=== PATIENT | female | born 1945 | race Caucasian/White ===

== ENCOUNTER → 2023-07-28 12:42 | Outpatient (REF) | payer MEDICARE, OTHER, SELFPAY | LOC: WDC 12:42 | PROVIDERS: ATTENDING PHYSICIAN Obstetrics & Gynecology Gynecology; FAMILY PHYSICIAN Family Medicine | DX: Z12.31 Encounter for screening mammogram for malignant neoplasm of breast (principal) | CPT/HCPCS: 77063; 77067 ==

== ENCOUNTER 2023-09-21 11:38 | Emergency (ER) | payer MEDICARE, OTHER, SELFPAY ==
[2023-09-21 11:50] VITALS: BP 181/90
[2023-09-21 12:05] VITALS: BP 175/82
--- NOTE | 2023-09-21 12:23 | ED.GENMED ---
History of Present Illness
<Nora Rossi PA-C - Last Filed: 09/21/23 17:50>
General
Chief Complaint: Chest Pain
Source: patient
Exam Limitations: none
Time Seen by Provider: 09/21/23 12:19
Nursing documentation reviewed up to this point in time: agreed with
History of Present Illness
History of Present Illness:
Patient is a 78-year-old female with history hypertension presenting to the emergency department for evaluation of chest discomfort. Patient states that she initially noticed symptoms around 7 AM this morning when she was getting dressed. Patient
describes a discomfort in her left chest with some radiation towards her left shoulder. She states it feels like a dull ache when she is sitting still more of a sharp pain with any movement. Pain is worse when she lifts her left arm up. Patient
denies any radiation to her back or her jaw. Patient denies any associated shortness of breath, dizziness, lightheadedness, nausea, diaphoresis. Patient denies any recent fever, chills, or cough.
After the onset of the chest comfort she did take her dog for a walk and went to the gym where she completed a barre class. She denies any exacerbation of chest pain with physical activity.
Patient denies any recent travel or recent surgeries. No known history of coronary artery disease.
Patient states that her father had history of heart failure.
Past History
<Nora Rossi PA-C - Last Filed: 09/21/23 17:50>
Social History
Tobacco: Smoker (3 cigarettes/day)
Review of Systems
<Nora Rossi PA-C - Last Filed: 09/21/23 17:50>
Review of Systems
Allergies reviewed?: Yes
All Other Systems: ROS reviewed and negative except as documented in HPI and ROS
Phy Exam
<Nora Rossi PA-C - Last Filed: 09/21/23 17:50>
Physical Exam
Physical Exam:
Vitals: Patient's vital signs are stable. Afebrile
General: Patient is well appearing, no acute distress. Nontoxic-appearing
Skin: Warm and dry, no rashes or lesions
Head: Normocephalic, atraumatic
Eyes: Sclera nonicteric. EOMs intact. No nystagmus.
Throat: Protecting airway
Neck: Normal ROM, no cervical spine tenderness, no meningismus. No JVD
Cardiac: Regular rate and rhythm, no murmurs. Reproducible point tenderness to left medial chest wall.
Pulm: Normal respiratory effort, no wheezes, rales, rhonchi heard on exam.
Abdomen: Abdomen soft no abdominal tenderness.
Extremities: No evidence of cyanosis or edema. Great distal pulses
Neuro: AAOx3. CN II-XII intact. No focal neurologic deficits.
Psychiatric: Normal affect.
Scores
<Nora Rossi PA-C - Last Filed: 09/21/23 17:50>
Heart Score for Chest Pain Patients
STEMI patient?: No
History: Slightly or Non-Suspicious
ECG: Normal
Age: >/= 65 years
Risk Factors: 1 or 2 Risk Factors
Troponin: </= Normal Limit
Heart Score for Chest Pain Patients: 3
Heart Score Risk: 2.5% MACE over next 6 weeks
Course
<Nora Rossi PA-C - Last Filed: 09/21/23 17:50>
Orders/Labs/Results
Orders:
Orders
09/21/23 11:41
ECG [Electrocardiogram (*1)] Urgent
Reason for Study: Chest Pain
EKG- Treatment ONCE
09/21/23 12:10
CMP [Comprehensive Metabolic Panel] Urgent
Complete Blood Count/With Diff Urgent
Troponin I Urgent
09/21/23 12:46
Ketorolac [Toradol] 15 mg IV NOW STA
09/21/23 13:05
CR Chest - 2 Views Urgent
Comment:
Reason For Exam: left sided chest pain
Abnormal Lab Results
09/21/23
12:10
RBC 4.02 L 10^6/uL
(4.20-5.40)
Hct 35.4 L %
(37.0-47.0)
BUN 19 H mg/dl
(7-17)
09/21/23 12:10
09/21/23 12:10
Vital Signs
Initial and Last Documented VS:
Initial Vital Signs
Temp Pulse Resp BP Pulse Ox
98 F 69 18 181/90 98
09/21/23 11:50 09/21/23 11:50 09/21/23 11:50 09/21/23 11:50 09/21/23 11:50
Last Documented Vital Signs
Temp Pulse Resp BP Pulse Ox
98 F 65 19 171/85 97
09/21/23 11:50 09/21/23 13:45 09/21/23 13:45 09/21/23 13:00 09/21/23 13:15
<Koffi Domingo MD - Last Filed: 09/21/23 14:53>
Orders/Labs/Results
Orders:
Orders
09/21/23 11:41
ECG [Electrocardiogram (*1)] Urgent
Reason for Study: Chest Pain
EKG- Treatment ONCE
09/21/23 12:10
CMP [Comprehensive Metabolic Panel] Urgent
Complete Blood Count/With Diff Urgent
Troponin I Urgent
09/21/23 12:46
Ketorolac [Toradol] 15 mg IV NOW STA
09/21/23 13:05
CR Chest - 2 Views Urgent
Comment:
Reason For Exam: left sided chest pain
Abnormal Lab Results
09/21/23
12:10
RBC 4.02 L 10^6/uL
(4.20-5.40)
Hct 35.4 L %
(37.0-47.0)
BUN 19 H mg/dl
(7-17)
09/21/23 12:10
09/21/23 12:10
Vital Signs
Initial and Last Documented VS:
Initial Vital Signs
Temp Pulse Resp BP Pulse Ox
98 F 69 18 181/90 98
09/21/23 11:50 09/21/23 11:50 09/21/23 11:50 09/21/23 11:50 09/21/23 11:50
Last Documented Vital Signs
Temp Pulse Resp BP Pulse Ox
98 F 65 19 171/85 97
09/21/23 11:50 09/21/23 13:45 09/21/23 13:45 09/21/23 13:00 09/21/23 13:15
<Nora Rossi PA-C - Last Filed: 09/21/23 17:50>
MDM/Problems Addressed
Differential Diagnosis Includes:
Not limited to: Muscle strain, costochondritis, pleurisy, pericarditis, myocarditis, ACS
MDM/Problems Addressed:
78-year-old female presenting with 5 hours of left chest discomfort. Symptoms are nonexertional and nonpleuritic. Pain definitely worse with movement and raising left arm. No associated shortness of breath, dizziness, lightheadedness, nausea,
diaphoresis. Patient proceeded to walk her dog and completed exercise class the gym after symptom onset this morning without any worsening. Patient stable on arrival to emergency department. Hypertensive otherwise vital signs stable. Physical
exam as above. Lungs clear bilaterally. Heart rate regular rate and rhythm. Reproducible tenderness left medial chest wall suggesting likely musculoskeletal origin. Labs were obtained which show no acute abnormalities. Initial troponin was
negative. EKG without any acute ischemic changes. Patient was given a dose of IV Toradol which significantly improved symptoms. Chest x-ray was also obtained which shows no acute abnormalities.
Although low suspicion for musculoskeletal origin given improvement following Toradol and reproducible nature�did recommend repeat troponin which patient declined patient feels better following Toradol and would like to go home. Aware of risk
associated with declining repeat troponin. Patient will be discharged with close return precautions, chest pain follow-up hotline. She will follow-up cardiology. Patient seen with attending physician.
Chronic conditions affecting care:
Hypertension
Acute Exacerbation and/or Progression of Chronic Illness:
Acutely hypertensive
<Nora Rossi PA-C - Last Filed: 09/21/23 17:50>
*Radiology
Radiology exam reviewed: preliminary read by ED provider (No acute disease) and radiology read reviewed
*Pulse Oximetry
Patient hypoxic: no
*EKG
Interpreted by ED Provider?: Yes
EKG Intrepretation Date: 09/21/23
Interpretation: normal
Comparison EKG: no comparison EKG present
Heart Rate: 67
Rate: normal
Rhythm: sinus
[place]: normal axis
Interval: normal interval
QRS Pattern: normal QRS
Ischemia: no ischemia
*Binder Technician Interpretation
Rate: normal
Interpretation: normal
Heart Rate: 62
Rhythm: sinus
*Critical Care Note
Total Time (30-74mins, 75-104mins- exclusive of procedures): Not Applicable
ED Attending Note
<Nora Rossi PA-C - Last Filed: 09/21/23 17:50>
-
Portions of this chart may have been created with voice recognition software.� Occasional wrong word or��sound alike� substitutions may have occurred due to the inherent limitations of voice recognition software.
<Koffi Domingo MD - Last Filed: 09/21/23 14:53>
ED Attending Note
Patient seen and examined by attending physician: Yes
I performed the substantive portion of visit, reviewed & personally made and approve the management plan that is documented in note by myself or THANH.: Yes
ED Attending Note:
78-year-old presents with chest pain. Started nonexertional at 7 AM. Continual throughout the whole morning. Now relieved after Toradol. Patient states is worse when she lifts her left arm. Patient did a significant workout today without
issues. She works out 4 to 5 days a week without issues. She denies nausea diaphoresis or pleuritic pain.
On exam patient is nontoxic in no distress. Lungs clear and equal. Heart regular rate and rhythm no murmur. Abdomen nontender. Extremities are without swelling cord or erythema. She is grossly nonfocal.
EKG is stable. Labs are stable. Ongoing symptoms that appear more musculoskeletal. Patient does significant workouts without any issues and did 1 this morning. Discussed second troponin and EKG with the patient which she refuses. She will
follow-up closely with cardiology however
Discharge Plan
Departure
Patient Disposition: Home (Routine Discharge)
Date of Disposition: 09/21/23
Time of Disposition: 14:38
Patient with high blood pressure during this ER visit?: Yes
Condition: Good
Covid-19: Not Applicable
Discharge Problem:
Chest pain
Instructions: Chest pain, Chest Pain CBC Follow Up, BLOOD PRESSURE
Referrals:
Juanis Carter, DO [Family Provider] - Follow up in 5-7 days
Activity Restrictions/Additional Instructions:
RETURN TO THE EMERGENCY DEPARTMENT WITH ANY CHEST PAIN, SHORTNESS OF BREATH, DIZZINESS, SEVERE ABDOMINAL PAIN, SEVERE BACK PAIN, WORSENING IN CURRENT SYMPTOMS, OR ANY OTHER CONCERNS
-You can take Motrin/Tylenol as needed at home for pain. Stay well-hydrated. Get plenty of rest.
-You should monitor your symptoms closely and return to the emergency department with any acute worsening or new symptoms.
-You should follow-up with cardiology for further evaluation/management
Interventions
Interventions:
*Risk Screen - Suicide Last Done: 09/21/23 13:43
*General Assessment Last Done: 09/21/23 13:43
*Neglect/Abuse Screening Last Done: 09/21/23 13:43
ED- Fall Risk Assessment Last Done: 09/21/23 14:54
*ED COVID-19 Vaccine History Last Done: 09/21/23 13:43
*Nursing Disposition Last Done: 09/21/23 14:54
ED- Cardiac Assessment Last Done: 09/21/23 12:56
Discharge Date and Time
Discharge Date/Time: 09/21/23 14:55
Print Language: KITTITIAN
[2023-09-21 12:26] LABS: % Basophils 0.7 % (0-2); % Eosinophils 1.6 % (0-6); % Immature Granulocytes 0.3 % (0-0.5); % Lymphocytes 30.4 % (20.5-51.1); % Monocytes 6.4 % (1.7-9.3); % Neutrophils 60.6 % (42.2-75.2); Absolute Basophils 0.1 10^3/uL (0-0.2); Absolute Eosinophils 0.1 10^3/uL (0-0.7); Absolute Monocytes 0.4 10^3/uL (0.1-0.6); Absolute Neutrophils 4.1 10^3/uL (1.4-6.5); Hematocrit 35.4 % (37.0-47.0); Hemoglobin 12.3 g/dL (12.0-16.0); Mean Corp Hgb Conc. 34.7 g/dL (33.0-37.0); Mean Corpuscular Hgb 30.6 pg (27.0-31.0); Mean Corpuscular Volume 88.1 fL (81.0-99.0); Mean Platelet Volume 10.2 fL (7.4-10.4); Nucleated Red Blood Cells % 0 %; Platelet Count 239 10^3/uL (130-400); Red Blood Cell Count 4.02 10^6/uL (4.20-5.40); Red Cell Dist. Width 13.8 % (11.5-14.5); White Blood Cell Count 6.7 10^3/uL (4.8-10.8)
[2023-09-21 12:39] LABS: ALT (SGPT) 16 U/L (0-35); AST (SGOT) 27 U/L (14-36); Albumin 4.7 g/dl (3.5-5.0); Alkaline Phosphatase 58 U/L (38-126); Blood Urea Nitrogen 19 mg/dl (7-17); Calcium 9.9 mg/dl (8.4-10.2); Carbon Dioxide 27 mmol/L (22-30); Chloride 102 mmol/L (98-107); Glucose 84 mg/dl (70-99); Potassium 4.1 mmol/L (3.5-5.1); Sodium 137 mmol/L (135-145); Total Bilirubin 0.5 mg/dl (0.2-1.3); Total Protein 7.1 g/dl (6.3-8.2); eGFR > 60.00
[2023-09-21 12:48] LABS: Troponin I < 0.012 ng/ml
[2023-09-21] MEDS: TORADOL 15 MG IV (12:53)
[2023-09-21 13:00] VITALS: BP 171/85
== END 2023-09-21 14:55 | disposition home or self-care (01) ==
LOC: EMR 11:38
PROVIDERS: EMERGENCY PHYSICIAN Emergency Medicine; FAMILY PHYSICIAN Family Medicine
DX: R07.89 Other chest pain (principal); I11.0 Hypertensive heart disease with heart failure; I50.9 Heart failure, unspecified; F17.210 Nicotine dependence, cigarettes, uncomplicated; I10 Essential (primary) hypertension; Z82.49 Family history of ischemic heart disease and other diseases of the circulatory system
CPT/HCPCS: 99283; 96374; 71046; 80053; 84484; 85025; 93005

== ENCOUNTER → 2023-10-26 14:02 | Outpatient (REF) | payer MEDICARE, OTHER, SELFPAY | LOC: RAD 14:02 | PROVIDERS: ATTENDING PHYSICIAN Family Medicine | DX: R09.89 Other specified symptoms and signs involving the circulatory and respiratory systems (principal) | CPT/HCPCS: 71260; Q9967 ==

== ENCOUNTER → 2024-03-20 07:56 | Outpatient (REF) | payer MEDICARE, OTHER, SELFPAY | LOC: RCS 07:56 | PROVIDERS: ATTENDING PHYSICIAN Internal Medicine; FAMILY PHYSICIAN Family Medicine | DX: R07.9 Chest pain, unspecified (principal); I10 Essential (primary) hypertension; R06.09 Other forms of dyspnea; I70.0 Atherosclerosis of aorta; R93.1 Abnormal findings on diagnostic imaging of heart and coronary circulation; E78.00 Pure hypercholesterolemia, unspecified | CPT/HCPCS: 93306 ==

== ENCOUNTER → 2024-03-22 08:04 | Outpatient (REF) | payer MEDICARE, OTHER, SELFPAY | LOC: RCS 08:04 | PROVIDERS: ATTENDING PHYSICIAN Internal Medicine; FAMILY PHYSICIAN Family Medicine | DX: R07.9 Chest pain, unspecified (principal); I10 Essential (primary) hypertension; R06.09 Other forms of dyspnea; I70.0 Atherosclerosis of aorta; R93.1 Abnormal findings on diagnostic imaging of heart and coronary circulation; E78.00 Pure hypercholesterolemia, unspecified | CPT/HCPCS: 93017; 93350 ==

== ENCOUNTER → 2024-04-13 08:03 | Outpatient (REF) | payer MEDICARE, OTHER, SELFPAY | LOC: HWRAD 08:03 | PROVIDERS: ATTENDING PHYSICIAN Otolaryngology; FAMILY PHYSICIAN Family Medicine | DX: S02.2XXA Fracture of nasal bones, initial encounter for closed fracture (principal) | CPT/HCPCS: 70486 ==

== ENCOUNTER → 2024-05-24 10:51 | Outpatient (REF) | payer MEDICARE, OTHER, SELFPAY | LOC: RAD 10:51 | PROVIDERS: ATTENDING PHYSICIAN Family Medicine | DX: Z98.1 Arthrodesis status (principal); M54.2 Cervicalgia | CPT/HCPCS: 72052 ==

== ENCOUNTER → 2024-06-02 15:04 | Outpatient (REF) | payer MEDICARE, OTHER, SELFPAY | LOC: RAD 15:04 | PROVIDERS: ATTENDING PHYSICIAN Family Medicine | DX: J43.2 Centrilobular emphysema (principal) | CPT/HCPCS: 71260; Q9967 ==

== ENCOUNTER → 2024-07-28 13:02 | Outpatient (REF) | payer MEDICARE, OTHER, SELFPAY | LOC: WDC 13:02 | PROVIDERS: ATTENDING PHYSICIAN Family Medicine | DX: Z12.31 Encounter for screening mammogram for malignant neoplasm of breast (principal) | CPT/HCPCS: 77063; 77067 ==

== ENCOUNTER → 2024-08-09 08:13 | Outpatient (REF) | payer MEDICARE, OTHER, SELFPAY | LOC: RAD 08:13 | PROVIDERS: ATTENDING PHYSICIAN Family Medicine | DX: M81.0 Age-related osteoporosis without current pathological fracture (principal) | CPT/HCPCS: 77080 ==